=== PATIENT | male | born 1990 | race Caucasian/White ===

== ENCOUNTER 2016-10-22 02:01 | Inpatient (IN) | payer MEDICAID ==
[2016-10-22 02:13] VITALS: TEMP 97.9
[2016-10-22] MEDS ORDERED: NS 1,000 ML IV ONE ×3 (02:43→06:21)
[2016-10-22] MEDS ORDERED: ONDANSETRON 4 MG/2 ML VIAL IVP ONE (02:47)
[2016-10-22] MEDS ORDERED: ONDANSETRON 4 MG/2 ML VIAL ONE (02:48)
[2016-10-22 02:53] LABS: % IMMATURE GRANULYOCYTES 0.2 % (0.0-1.1); ABSOLUTE IMMATURE GRANULOCYTES 0.01 10^3/uL (0.00-0.10); ADD DIFF? NO; ADD MORPH? YES; ADD SCAN? NO; ATYPICAL LYMPHOCYTE FLAG 10 (0-99); FRAGMENT RBC FLAG 20 (0-99); HEMATOCRIT 36.7 % (40.0-51.0); LEFT SHIFT FLG 0 (0-99); LIPEMIA HEMOLYSIS FLAG 80 (0-99); MEAN CELL HEMOGLOBIN 25.2 pg (27.9-34.1); MEAN CELL HEMOGLOBIN CONCENTR. 32.7 g/dL (32.4-36.7); MEAN CELL VOLUME 76.9 fL (81.5-99.8); PLATELET CLUMPS FLAG 0 (0-99); PLATELET COUNT 267 10^3/uL (150-400); RED BLOOD CELL COUNT 4.77 10^6/uL (4.40-6.38)
[2016-10-22 02:54] LABS: RED CELL DISTRIBUTION WIDTH 20.4 % (11.5-15.2)
--- NOTE | 2016-10-22 02:58 | CPEKG ---
Heart Rate: 61 RR Interval: 984 P-R Interval: 168 QRSD Interval: 108 QT Interval: 456 QTC Interval: 460 P [place]: 82 QRS [place]: 55 T Wave [place]: 47 EKG Severity - ABNORMAL ECG - EKG Impression: SINUS RHYTHM EKG Impression: INCOMPLETE RIGHT BUNDLE BRANCH BLOCK Electronically Signed By: Soren Fountain 22-Oct-2016 06:14:22
[2016-10-22 03:02] LABS: INR 1.17 (0.83-1.16); PROTIME(PATIENT) 14.9 SEC (12.0-15.0)
[2016-10-22 03:03] LABS: APTT 30.3 SEC (23.0-38.0)
[2016-10-22 03:08] LABS: ALANINE AMINOTRANSFERASE 22 IU/L (21-72); ALBUMIN 4.1 g/dL (3.5-5.0); ALKALINE PHOSPHATASE 88 IU/L (38-126); ANION GAP 16 mEq/L (8-16); ASPARTATE AMINOTRANSFERASE 28 IU/L (17-59); BILIRUBIN,TOTAL 0.7 mg/dL (0.1-1.4); BILIRUBIN-CONJUGATED 0.1 mg/dL (0.0-0.5); BILIRUBIN-UNCONJUGATED 0.6 mg/dL (0.0-1.1); CARBON DIOXIDE 37 mEq/l (22-31); CHLORIDE 79 mEq/L (97-110); CREATININE 1.2 mg/dL (0.7-1.3); GLOMERULAR FILTRATION RATE > 60; GLUCOSE 128 mg/dL (70-100); SODIUM 132 mEq/L (134-144); TOTAL PROTEIN 7.4 g/dL (6.3-8.2)
[2016-10-22 03:12] LABS: HYPOCHROMIA 2+; MACROCYTES 1+; PLATELET ESTIMATE ADEQUATE (ADEQ); STOMATOCYTES 1+
[2016-10-22 03:13] LABS: MICROCYTES 1+; POTASSIUM 2.1 mEq/L (3.5-5.2)
[2016-10-22] MEDS ORDERED: MAGNESIUM SULF 2 GM/WATER 50 ML IV ONE (03:26)
[2016-10-22] MEDS ORDERED: POTASSIUM Cl (KCl) 100 ML IV ONE ×3 (03:27→04:50)
[2016-10-22] MEDS ORDERED: POTASSIUM CL 20 MEQ/15 ML UDCUP PO ONE (03:27)
[2016-10-22] MEDS ORDERED: POTASSIUM Cl (KCl) 20 MEQ/50 ML BAG IV ONE (03:32)
[2016-10-22] MEDS ORDERED: POTASSIUM CL 20 MEQ TAB ONE (03:33)
--- NOTE | 2016-10-22 03:48 | EDPHY ---
H & P Time Seen by Provider: 10/22/16 02:44 HPI/ROS: HPI Fainting, thinks his potassium is low, weakness. 25-year-old male by private vehicle. This patient lives skilled nursing between [place]. 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 He has a history of a right upper lobe malignancy. He cannot give me further details on this. He does see a firearms assembly supervisor down in [place] and he states that he is to have a right upper lobectomy to remove this lesion. He denies any history of tuberculosis and states that he has been tested for this. He reports that over the last several days he has been feeling progressively more weak. He reports yesterday he felt lightheaded and weak. He reports that when he got down to work tonight he was running up an escalator and had a syncopal episode. He had his roommate bring him to the hospital. ROS: Constitutional: No fever, no chills. As above. Eyes: No discharge. No changes in vision. ENT: No sore throat. No nasal congestion or rhinorrhea. Respiratory: No cough. No shortness of breath. Cardiac: No chest pain, no palpitations. Gastrointestinal: No abdominal pain, no vomiting, no diarrhea. Genitourinary: No hematuria. No dysuria or increased frequency with urination. Musculoskeletal: No back pain. No neck pain. No myalgias or arthralgias. Skin: No rashes. Neurological: No headache. No focal weakness or altered sensation. Past medical history: As above. Social history: As above. Currently here by himself. Denies alcohol. Denies IV drugs or street drugs. Physical Exam: General Appearance: Alert, no distress. Thin in stature. This patient is responding to questions appropriately and in full sentences. This patient appears well-hydrated and well-nourished. Eyes: Pupils equal and round no pallor or injection. No lid edema, erythema or injection. Respiratory: There are no retractions, lungs are clear to auscultation with good air movement bilaterally. Cardiovascular: Regular rate and rhythm. No murmur. Gastrointestinal: Abdomen is soft and nontender, no masses, bowel sounds normal. No focal tenderness at McBurney's point. No Montoya sign. Neurological: Motor sensory function is grossly intact. Cranial nerves are normal. Gait is normal. Skin: Warm and dry, no rashes. Musculoskeletal: Neck is supple and nontender. Extremities are symmetrical. All joints range without pain or impingement. Psychiatric: No agitation. No depression. Database: EKG: EKG time is 2:56 a.m.; EKG shows a narrow complex normal sinus rhythm with a ventricular rate of 61. Incomplete right bundle branch block noted. Early U waves seen best in lead 2. The UT, QRS, QT intervals are within normal limits. There are no ST-T wave changes indicative of ischemic or injury pattern. No evidence of right heart strain. Interpreted by me. Imaging: Chest x-ray PA and lateral; the cardiac mediastinal silhouette is unremarkable. Right upper lobe infiltrative process. No pneumothorax. No other acute cardiopulmonary disease process noted. Interpreted by me. Procedures: Emergency department course: IV placed. He was placed on a monitor. EKG obtained and reviewed by myself. Vital signs reviewed and are essentially normal. He was started on IV normal saline with 1-2 L to be given over the next 1-2 hours. Patient is hypokalemic with a potassium of 2.1. He was given 2 g of IV magnesium. Oral and IV potassium replacement started in the emergency department. 3:50 a.m., spoke with hospitalist, Dr. Leal. Patient accepted for admission to the hospitalist service. Antibiotics will be held at this time in the emergency department. Antibiotic administration will be deferred to the hospitalist service after their evaluation of the patient. The patient's remaining emergency department course under my care has been uneventful. He was admitted in stable condition. Differential Diagnosis: The differential diagnosis on this patient includes but is not limited to hypokalemia, pulmonary malignancy. Pneumonia, serious bacterial infection unlikely. This represents a partial list of diagnoses considered. These considerations are based on history, physical exam, past history, reassessment and diagnostic testing. Smoking Status: Never smoked Constitutional: Initial Vital Signs Temperature (C) 36.6 C 10/22/16 02:08 Heart Rate 80 10/22/16 02:08 Respiratory Rate 18 10/22/16 02:08 Blood Pressure 93/58 L 10/22/16 02:08 O2 Sat (%) 97 10/22/16 02:08 O2 Delivery Mode Nasal Cannula O2 (L/minute) 2 Allergies/Adverse Reactions: cats Allergy (Uncoded 10/22/16 02:07) Home Medications: Medication Instructions Recorded [place] 5/325 (*) 10/22/16 Pantoprazole Sodium [Protonix 40mg 10/22/16 (*)] Potassium 10/22/16 Reglan 10/22/16 Medical Decision Making - Data Points Laboratory Results: Laboratory Results 10/22/16 02:45 10/22/16 02:45 10/22/16 10/22/16 10/22/16 02:45 02:45 02:45 WBC 4.77 10^3/uL 10^3/uL (3.80-9.50) RBC 4.77 10^6/uL 10^6/uL (4.40-6.38) Hgb 12.0 g/dL L g/dL (13.7-17.5) Hct 36.7 % L % (40.0-51.0) MCV 76.9 fL L fL (81.5-99.8) MCH 25.2 pg L pg (27.9-34.1) MCHC 32.7 g/dL g/dL (32.4-36.7) RDW 20.4 % H % (11.5-15.2) Plt Count 267 10^3/uL 10^3/uL (150-400) MPV 10.0 fL fL (8.7-11.7) Neut % (Auto) 53.1 % % (39.3-74.2) Lymph % (Auto) 31.0 % % (15.0-45.0) [place] % (Auto) 11.3 % % (4.5-13.0) Eos % (Auto) 3.4 % % (0.6-7.6) Baso % (Auto) 1.0 % % (0.3-1.7) Nucleat RBC Rel Count 0.0 % % (0.0-0.2) Absolute Neuts (auto) 2.53 10^3/uL 10^3/uL (1.70-6.50) Absolute Lymphs (auto) 1.48 10^3/uL 10^3/uL (1.00-3.00) Absolute Monos (auto) 0.54 10^3/uL 10^3/uL (0.30-0.80) Absolute Eos (auto) 0.16 10^3/uL 10^3/uL (0.03-0.40) Absolute Basos (auto) 0.05 10^3/uL 10^3/uL (0.02-0.10) Absolute Nucleated RBC 0.00 10^3/uL 10^3/uL (0-0.01) Immature Gran % 0.2 % % (0.0-1.1) Immature Gran # 0.01 10^3/uL 10^3/uL (0.00-0.10) Platelet Estimate ADEQUATE (ADEQ) Hypochromasia 2+ H Microcytic Cells 1+ H Oval Macrocytes 1+ H Stomatocytes 1+ H PT 14.9 SEC SEC (12.0-15.0) INR 1.17 H (0.83-1.16) APTT 30.3 SEC SEC (23.0-38.0) VBG Lactic Acid Sodium 132 mEq/L L mEq/L (134-144) Potassium 2.1 mEq/L L* mEq/L (3.5-5.2) Chloride 79 mEq/L L mEq/L (97-110) Carbon Dioxide 37 mEq/l H mEq/l (22-31) Anion Gap 16 mEq/L mEq/L (8-16) BUN 35 mg/dL H mg/dL (7-23) Creatinine 1.2 mg/dL mg/dL (0.7-1.3) Estimated GFR > 60 Glucose 128 mg/dL H mg/dL (70-100) Calcium 10.0 mg/dL mg/dL (8.5-10.4) Total Bilirubin 0.7 mg/dL mg/dL (0.1-1.4) Conjugated Bilirubin 0.1 mg/dL mg/dL (0.0-0.5) Unconjugated Bilirubin 0.6 mg/dL mg/dL (0.0-1.1) AST 28 IU/L IU/L (17-59) ALT 22 IU/L IU/L (21-72) Alkaline Phosphatase 88 IU/L IU/L (38-126) Total Protein 7.4 g/dL g/dL (6.3-8.2) Albumin 4.1 g/dL g/dL (3.5-5.0) 10/22/16 02:45 WBC RBC Hgb Hct MCV MCH MCHC RDW Plt Count MPV Neut % (Auto) Lymph % (Auto) [place] % (Auto) Eos % (Auto) Baso % (Auto) Nucleat RBC Rel Count Absolute Neuts (auto) Absolute Lymphs (auto) Absolute Monos (auto) Absolute Eos (auto) Absolute Basos (auto) Absolute Nucleated RBC Immature Gran % Immature Gran # Platelet Estimate Hypochromasia Microcytic Cells Oval Macrocytes Stomatocytes PT INR APTT VBG Lactic Acid 1.4 mmol/L mmol/L (0.7-2.1) Sodium Potassium Chloride Carbon Dioxide Anion Gap BUN Creatinine Estimated GFR Glucose Calcium Total Bilirubin Conjugated Bilirubin Unconjugated Bilirubin AST ALT Alkaline Phosphatase Total Protein Albumin Medications Given: Discontinued Medications Sodium Chloride (Ns) 1,000 mls @ 0 mls/hr IV ONCE ONE; Wide Open PRN Reason: Protocol Stop: 10/22/16 02:44 Last Admin: 10/22/16 02:52 Dose: 1,000 mls Sodium Chloride (Ns) 1,000 mls @ 0 mls/hr IV ONCE ONE; Wide Open PRN Reason: Protocol Stop: 10/22/16 02:44 Last Admin: 10/22/16 03:20 Dose: 1,000 mls Magnesium Sulfate (Magnesium Sulf 2 Gm (Premix)) 50 mls @ 50 mls/hr IV EDNOW ONE Stop: 10/22/16 04:25 Last Admin: 10/22/16 03:51 Dose: 50 mls Potassium Chloride (Potassium Cl 20 Meq (Premix)) 100 mls @ 50 mls/hr IV EDNOW ONE Stop: 10/22/16 05:26 Last Admin: 10/22/16 06:36 Dose: Not Given Potassium Chloride (Potassium Cl 10 Meq (Premix)) 100 mls @ 100 mls/hr IV ONCE ONE Stop: 10/22/16 05:47 Last Admin: 10/22/16 06:26 Dose: 100 mls Potassium Chloride (Potassium Cl 10 Meq (Premix)) 100 mls @ 100 mls/hr IV EDNOW ONE Stop: 10/22/16 05:49 Last Admin: 10/22/16 05:08 Dose: 100 mls Ondansetron HCl (Zofran) 4 mg IVP EDNOW ONE Stop: 10/22/16 02:48 Last Admin: 10/22/16 02:51 Dose: 4 mg Potassium Chloride (Potassium Chloride Oral Liquid) 20 meq PO EDNOW ONE Stop: 10/22/16 03:28 Last Admin: 10/22/16 03:52 Dose: 20 meq Departure - Departure Disposition: [facility] Inpatient Acute Clinical Impression: Hypokalemia, Lung malignancy, Syncope
[2016-10-22] MEDS ORDERED: oxyCODONE IR 5 MG TAB PO PRN (04:49)
[2016-10-22] MEDS ORDERED: PROTOCOL K PHOSPHATE 1 DOSE IV PRN (04:49)
[2016-10-22] MEDS ORDERED: ACETAMINOPHEN 325 MG TAB PO PRN (04:49)
[2016-10-22] MEDS ORDERED: PROTOCOL MAGNESIUM 1 DOSE IV PRN (04:49)
[2016-10-22] MEDS ORDERED: ONDANSETRON DISINTEGRATING 4 MG TAB PO PRN (04:49)
[2016-10-22] MEDS ORDERED: PROMETHAZINE HCL 25 MG/ML INJ IVP PRN (04:49)
[2016-10-22] MEDS ORDERED: LORazepam 0.5 MG TAB PO PRN (04:49)
[2016-10-22] MEDS ORDERED: PROTOCOL CALCIUM 1 DOSE IV PRN (04:49)
[2016-10-22] MEDS ORDERED: ONDANSETRON 4 MG/2 ML VIAL IVP PRN (04:49)
[2016-10-22] MEDS ORDERED: PROTOCOL POTASSIUM 1 DOSE MISC PRN (04:49)
[2016-10-22] MEDS ORDERED: CALCIUM CARBONATE 500 MG CHEWABLE TAB PO PRN (04:52)
[2016-10-22] MEDS ORDERED: NS 1,000 ML IV SCH (05:00)
--- NOTE | 2016-10-22 06:14 | PDGENHP ---
History and Physical - Chief Complaint "low potassium" - History of Present Illness 25 yo M with PMH of severe bulimia/anorexia, recurrent aspiration pneumonia with subsequent development of RUL lung abscess as well as recurrent hypokalemia presenting with generalized weakness, recurrent syncope versus near syncope and concerns that his K was low--on arrival K confirmed at 2.1. Per patient, he has been under the care of Dr. Leblanc and until recently was taking 40mg of K most days. He ran out of his prescription 2 weeks ago however and was not able to get another one for unclear reasons--he states he still has access to his PCP but notes that given he is about to turn 26, he is in the process of changing his insurance. He is a bit vague on his bulimia hx but notes that he has issues with vomiting periodically, and that when it is triggered he will often have difficulty turning it around. About 4 days ago he began to have nausea--this continued for the next several days and was worst yesterday. He notes he ate very little yesterday and had very little urine output, but claims that prior to that he was eating normally. He admits to having lost some weight after being on antibiotics for his lung, but states he is working to increase his weight. He denies sob, fever or chills, chest pain or palpitations, current nausea. History Information - Allergies/Home Medication List Allergies/Adverse Reactions: cats Allergy (Uncoded 10/22/16 02:07) Home Medications: [place] 5/325 (*) 10/22/16 [Last Taken Unknown] Pantoprazole Sodium [Protonix 40mg (*)] 10/22/16 [Last Taken Unknown] Potassium 10/22/16 [Last Taken Unknown] Reglan 10/22/16 [Last Taken Unknown] I have personally reviewed and updated: family history, medical history, social history, surgical history - Past Medical History GERD (with hiatal hernia and gastric ulcers), psychiatric history (depression/ anxiety/eating disorder) Additional medical history: anorexia/bulimia--previously in tx at [facility], had J tube until recently, per records has been very difficult to treat with associated rumination. lung abscess RUL--2/2 recurrent aspiration pna in setting of chronic bulimia. refeeding syndrome. gastroparesis. chronic lung pain with continuous narcotic use and dependency - Surgical History Additional surgical history: J tube. tonsillectomy - Family History Positive for: asthma (brother) - Social History Smoking Status: Never smoked Alcohol Use: Rarely Drug Use: None Additional social history: works at [employer], has had multiple hospitalizations at various hospitals mostly in [place] Review of Systems ROS: 10pt was reviewed & negative except for what was stated in HPI & below Physical Exam Temp Pulse Resp BP Pulse Ox 36.6 C 59 L 14 96/61 L 100 10/22/16 02:08 10/22/16 05:04 10/22/16 05:04 10/22/16 05:04 10/22/16 05:04 O2 (L/minute) 2 Constitutional: no apparent distress, not in pain Eyes: PERRL, anicteric sclera Ears, Nose, Mouth, Throat: moist mucous membranes, hearing normal, no oral mucosal ulcers Cardiovascular: no murmur, rub, or gallop, bradycardia, No edema Respiratory: no respiratory distress, no rales or rhonchi Gastrointestinal: normoactive bowel sounds, soft, non-tender abdomen Genitourinary: no bladder fullness Skin: warm, normal color Musculoskeletal: full muscle strength, no muscle tenderness Neurologic: AAOx3 Psychiatric: interacting appropriately, not anxious, not encephalopathic Lab Data & Imaging Review 10/22/16 02:45 10/22/16 02:45 WBC 4.77 10^3/uL (3.80-9.50) 10/22/16 02:45 RBC 4.77 10^6/uL (4.40-6.38) 10/22/16 02:45 Hgb 12.0 g/dL (13.7-17.5) L 10/22/16 02:45 Hct 36.7 % (40.0-51.0) L 10/22/16 02:45 MCV 76.9 fL (81.5-99.8) L 10/22/16 02:45 MCH 25.2 pg (27.9-34.1) L 10/22/16 02:45 MCHC 32.7 g/dL (32.4-36.7) 10/22/16 02:45 RDW 20.4 % (11.5-15.2) H 10/22/16 02:45 Plt Count 267 10^3/uL (150-400) 10/22/16 02:45 MPV 10.0 fL (8.7-11.7) 10/22/16 02:45 Neut % (Auto) 53.1 % (39.3-74.2) 10/22/16 02:45 Lymph % (Auto) 31.0 % (15.0-45.0) 10/22/16 02:45 [place] % (Auto) 11.3 % (4.5-13.0) 10/22/16 02:45 Eos % (Auto) 3.4 % (0.6-7.6) 10/22/16 02:45 Baso % (Auto) 1.0 % (0.3-1.7) 10/22/16 02:45 Nucleat RBC Rel Count 0.0 % (0.0-0.2) 10/22/16 02:45 Absolute Neuts (auto) 2.53 10^3/uL (1.70-6.50) 10/22/16 02:45 Absolute Lymphs (auto) 1.48 10^3/uL (1.00-3.00) 10/22/16 02:45 Absolute Monos (auto) 0.54 10^3/uL (0.30-0.80) 10/22/16 02:45 Absolute Eos (auto) 0.16 10^3/uL (0.03-0.40) 10/22/16 02:45 Absolute Basos (auto) 0.05 10^3/uL (0.02-0.10) 10/22/16 02:45 Absolute Nucleated RBC 0.00 10^3/uL (0-0.01) 10/22/16 02:45 Immature Gran % 0.2 % (0.0-1.1) 10/22/16 02:45 Immature Gran # 0.01 10^3/uL (0.00-0.10) 10/22/16 02:45 Platelet Estimate ADEQUATE (ADEQ) 10/22/16 02:45 Hypochromasia 2+ H 10/22/16 02:45 Microcytic Cells 1+ H 10/22/16 02:45 Oval Macrocytes 1+ H 10/22/16 02:45 Stomatocytes 1+ H 10/22/16 02:45 PT 14.9 SEC (12.0-15.0) 10/22/16 02:45 INR 1.17 (0.83-1.16) H 10/22/16 02:45 APTT 30.3 SEC (23.0-38.0) 10/22/16 02:45 VBG Lactic Acid 1.4 mmol/L (0.7-2.1) 10/22/16 02:45 Sodium 132 mEq/L (134-144) L 10/22/16 02:45 Potassium 2.1 mEq/L (3.5-5.2) L* 10/22/16 02:45 Chloride 79 mEq/L (97-110) L 10/22/16 02:45 Carbon Dioxide 37 mEq/l (22-31) H 10/22/16 02:45 Anion Gap 16 mEq/L (8-16) 10/22/16 02:45 BUN 35 mg/dL (7-23) H 10/22/16 02:45 Creatinine 1.2 mg/dL (0.7-1.3) 10/22/16 02:45 Estimated GFR > 60 10/22/16 02:45 Glucose 128 mg/dL (70-100) H 10/22/16 02:45 Calcium 10.0 mg/dL (8.5-10.4) 10/22/16 02:45 Total Bilirubin 0.7 mg/dL (0.1-1.4) 10/22/16 02:45 Conjugated Bilirubin 0.1 mg/dL (0.0-0.5) 10/22/16 02:45 Unconjugated Bilirubin 0.6 mg/dL (0.0-1.1) 10/22/16 02:45 AST 28 IU/L (17-59) 10/22/16 02:45 ALT 22 IU/L (21-72) 10/22/16 02:45 Alkaline Phosphatase 88 IU/L (38-126) 10/22/16 02:45 Total Protein 7.4 g/dL (6.3-8.2) 10/22/16 02:45 Albumin 4.1 g/dL (3.5-5.0) 10/22/16 02:45 Visualized and Interpreted Chest x-ray results: Yes Chest X-Ray results: other (RUL infiltrate) Visualized and Interpreted EKG results: Yes EKG Interpretation: Positive for: other (early U wave in 2), right bundle branch block (incomplete) Assessment & Plan Assessment: Hypokalemia (Acute) Syncope (Acute) 25 yo M with hx of severe bulimia/anorexia with recurrent aspiration and lung abscess as well as recurrent hypokalemia pw severe hypokalemia # severe hypokalemia: in setting of chronic bulimia/anorexia and with prior daily K supplementation that was discontinued 2 weeks ago. Does have ecg changes and has been symptomatic with this. Started on K supplementation per protocol. Has gotten Mag as well. Monitoring on tele. # bulimia/anorexia: per records this has been a severe problem, previously being treated at [facility] and previously receiving supplemental TFs. He is not totally forthcoming about these issues. Will ask dietary and nurse to evaluate. Monitor for refeeding syndrome which he has had issues with in the past as well. # lung abscess: apparently reported lung cancer to ER doctor, but per records only report is of lung abscess which has been successfully treated with abx, on review of cxr this is likely residual scarring rather than acute infection by my read but formal radiology report pending. No plan for abx at this time, patient also stated he is to have a partial lobectomy performed, though on review of notes it sounds as if this was thought to be likely not indicated given improvement # chronic aspiration: in setting of bulimia and related to recurrent vomiting and reported rumination # gastroparesis: continue reglan # GERD/hiatal hernia/gastric ulcers: continue PPI, sucralfate and prn tums. Per patient this has been less of an issue recently # depression/anxiety: in the past patient was being treated with lexapro, klonopin and seroquel but sounds as if those have been discontinued, will monitor, again will ask nurse to evaluate. Appears euthuymic currently # dispo: IP status, high risk presenting issues including life threatening hypokalemia Patient is new to my care. Old records reviewed including multiple hospital reports on [facility] including H&Ps from [facility], [facility] and multiple ER reports. Care plan reviewed with ER doctor as above.
[2016-10-22] MEDS ORDERED: SUCRALFATE 1 GM/10 ML UDCUP PO SCH (07:30)
[2016-10-22 08:09] VITALS: BP 106/59; PULSE 61; RESP 18; O2SAT 95
[2016-10-22] MEDS: ENOXAPARIN 40 MG/0.4 ML SYR SC SCH ×2 (08:15→08:19)
[2016-10-22 08:16] LABS: % IMMATURE GRANULYOCYTES 0.2 % (0.0-1.1); ABSOLUTE IMMATURE GRANULOCYTES 0.01 10^3/uL (0.00-0.10); ADD DIFF? NO; ADD MORPH? YES; ADD SCAN? NO; ATYPICAL LYMPHOCYTE FLAG 10 (0-99); FRAGMENT RBC FLAG 20 (0-99); HEMATOCRIT 28.7 % (40.0-51.0); HEMOGLOBIN 9.2 g/dL (13.7-17.5); IONIZED CALCIUM 1.05 MMOL/L (1.12-1.30); LEFT SHIFT FLG 0 (0-99); LIPEMIA HEMOLYSIS FLAG 80 (0-99); MEAN CELL HEMOGLOBIN 25.6 pg (27.9-34.1); MEAN CELL HEMOGLOBIN CONCENTR. 32.1 g/dL (32.4-36.7); MEAN CELL VOLUME 79.9 fL (81.5-99.8); PLATELET CLUMPS FLAG 0 (0-99); PLATELET COUNT 184 10^3/uL (150-400); RED BLOOD CELL COUNT 3.59 10^6/uL (4.40-6.38)
[2016-10-22 08:26] LABS: ANION GAP 7 mEq/L (8-16); CALCIUM 7.9 mg/dL (8.5-10.4); CARBON DIOXIDE 36 mEq/l (22-31); CHLORIDE 93 mEq/L (97-110); CREATININE 1.1 mg/dL (0.7-1.3); GLOMERULAR FILTRATION RATE > 60; GLUCOSE 73 mg/dL (70-100); MAGNESIUM 2.6 mg/dL (1.6-2.3); RED CELL DISTRIBUTION WIDTH 20.3 % (11.5-15.2); SODIUM 136 mEq/L (134-144)
--- NOTE | 2016-10-22 08:39 | CPEKG ---
Heart Rate: 51 RR Interval: 1176 P-R Interval: 172 QRSD Interval: 102 QT Interval: 480 QTC Interval: 443 P [place]: 75 QRS [place]: 64 T Wave [place]: 56 EKG Severity - BORDERLINE ECG - EKG Impression: SINUS RHYTHM EKG Impression: LOW VOLTAGE IN FRONTAL LEADS EKG Impression: BORDERLINE T ABNORMALITIES, ANT-LAT LEADS Electronically Signed By: Garry Corona 22-Oct-2016 14:17:10
[2016-10-22 08:46] LABS: POTASSIUM 2.7 mEq/L (3.5-5.2)
[2016-10-22] MEDS ORDERED: POTASSIUM CL 10 MEQ TAB PO ONE (08:51)
[2016-10-22] MEDS ORDERED: CALCIUM GLUCONATE 50 ML IV ONE (08:51)
[2016-10-22] MEDS ORDERED: PANTOPRAZOLE SODIUM 40 MG TAB PO SCH (09:00)
[2016-10-22] MEDS ORDERED: METOCLOPRAMIDE 10 MG TAB PO SCH (09:00)
[2016-10-22] MEDS ORDERED: POTASSIUM CL 20 MEQ TAB PO ONE (09:41)
[2016-10-22 09:42] LABS: MICROCYTES 1+
[2016-10-22 09:43] LABS: ELLIPTOCYTES 1+; POLYCHROMASIA 1+
[2016-10-22 09:44] LABS: PLATELET ESTIMATE ADEQUATE (ADEQ)
--- NOTE | 2016-10-22 09:51 | PDDCSUM ---
Discharge Summary Discharge Summary: DISCHARGE SUMMARY FOLLOW-UP ITEMS: Repeat chemistry this week DATE OF ADMISSION: 10/22/2016 DATE OF DISCHARGE: 10/22/2016 DISCHARGE DIAGNOSES: 1. Severe acute on chronic hypokalemia 2. Suspected bulimia 3. History of lung abscess CONSULTATIONS: None PROCEDURES / IMAGING: EKG demonstrating incomplete right bundle branch block comma chest x-ray demonstrating right upper lobe scarring versus persistent cavitary lesion CHIEF COMPLAINT: Acute weakness SUBJECTIVE: Patient reports he is feeling well at time of discharge, he reports his strength has returned, he denies any cough fever or chills PHYSICAL EXAM ON DISCHARGE: Systolic blood pressure is 106, heart rate is 60, afebrile overnight, satting well on room air, alert awake oriented x3, no apparent distress comma motor strength is 5/5 bilateral upper and lower extremities, bowel sounds are present , abdomen is soft nontender nondistended LABS ON DISCHARGE: Potassium is 2.7 prior to final repletion, magnesium is 2.6, creatinine is 1.1, phosphorus 3.2, liver panel is unremarkable, white blood cell count is 4400 HOSPITAL COURSE BY PROBLEM: 1. Severe hypokalemia. Acute on chronic, most likely secondary to ongoing bulimia and his chronic GI issues with possible GI losses via diarrhea as well as via vomiting. He reports that his GI symptoms have resolved, and he is stable on a combination of Zofran and Reglan. He also reports that he has not been taking is regular potassium supplement for the past 2 weeks and this most likely contributed to his presentation. He was repleted with oral and IV potassium and has received 80 mEq of oral potassium on the day of discharge. I recommended that he continue 40 mEq daily and have repeat labs next week. His strength has symptomatically improved and he is safe for discharge. He was admitted as an inpatient for telemetry given his incomplete right bundle branch block in the setting of hypokalemia and his recovery was much more rapid than originally anticipated by Dr. Reynolds. 2. Suspected bulimia. Patient reports many GI issues and I recommend that he follow up with primary care provider for these things. 3. History of lung abscess. Patient currently has no infectious symptoms and his white blood cell count is normal. He does not require further imaging for the scarring in his right upper lobe but he should follow up with his primary care provider and correlate with previous x-rays and/or CT imaging. DISCHARGE MEDICATIONS: Please see official discharge medication reconciliation sheet in chart , potassium 40 mEq daily, as needed Reglan and Phenergan, continue other medications. DISCHARGE INSTRUCTIONS: Please follow up with primary care provider this week and have labs redrawn. TIME SPENT: Greater than 30 minutes were spent on direct patient care, as well as discharge planning and preparation. The patient was initially admitted for reasonable medical necessity for a severe acute on chronic hypokalemia requiring IV replacement as well as telemetry monitoring for incomplete right bundle branch block in the setting of comorbid conditions including suspected chronic bulimia and history of pulmonary abscess. His condition improved much more rapidly than renally anticipated and he is safe for discharge home at this time.
== END 2016-10-22 10:13 | disposition home or self-care (01) | DRG 641 ==
LOC: F2N 04:46
PROVIDERS: ADMIT Internal Medicine; ATTEND Internal Medicine
DX: E87.6 Hypokalemia (principal); I45.10 Unspecified right bundle-branch block; F50.2 Bulimia nervosa; F11.20 Opioid dependence, uncomplicated; J98.4 Other disorders of lung; F41.8 Other specified anxiety disorders; K31.84 Gastroparesis; K21.9 Gastro-esophageal reflux disease without esophagitis; Z87.01 Personal history of pneumonia (recurrent)
CPT/HCPCS: 96365; J0610; J1650; J2405; J2550